=== PATIENT | female | born 1995 | race American Indian/Alaskan Native ===

== ENCOUNTER 2017-04-20 21:56 | Emergency (ER) | payer MEDICAID, OTHER ==
[2017-04-20 21:56] VITALS: BMI 28.3
[2017-04-20 22:09] VITALS: BP 101/65; PULSE 104; RESP 18; TEMP 97.9; O2SAT 100
[2017-04-20] MEDS ORDERED: Amoxicillin-Clav 875-125 mg Tab PO STA (22:34)
--- NOTE | 2017-04-20 22:35 | C.PDOC ---
History Of Present Illness The patient reports 1 week history of nasal congestion which is associated with head pressure. Patient reports that the pain is worsened with leaning forward. Patient has tried OTC sinus medicaitons without relief. Denies fever, nausea, vomiting, neck pain, trauma, travel. Time Seen by Provider: 04/20/17 22:14 Chief Complaint (Nursing): Cough, Cold, Congestion History Per: Patient History/Exam Limitations: no limitations Onset/Duration Of Symptoms: Days, Persistent Current Symptoms Are (Timing): Still Present Location Of Pain: Sinus/es Associated Symptoms: Sinus Drainage, Nasal Congestion. denies: Sore Throat Past Medical History Reviewed: Historical Data, Nursing Documentation, Vital Signs Vital Signs: Last Vital Signs Temp 97.9 F 04/20/17 22:06 Pulse 104 H 04/20/17 22:06 Resp 18 04/20/17 22:06 BP 101/65 04/20/17 22:06 Pulse Ox 100 04/20/17 22:40 - Medical History PMH: Asthma, Bronchitis Surgical History: No Surg Hx Family History: States: Other Other Family History: family history of asthma and allergies - Social History Hx Alcohol Use: No Hx Substance Use: No - Immunization History Hx Tetanus Toxoid Vaccination: Yes Hx Influenza Vaccination: Yes Hx Pneumococcal Vaccination: Yes Review Of Systems Except As Marked, All Systems Reviewed And Found Negative. Physical Exam - Physical Exam Appears: Well, No Acute Distress Skin: Normal Color, Warm, No Rash Head: Atraumatic, Normacephalic Eye(s): bilateral: Normal Inspection, PERRL, EOMI Ear(s): Bilateral: Normal Nose: Other ((+) nasal congestion and right sided frontal sinus tenderness) Oral Mucosa: Moist Tongue: Normal Appearing Lips: Normal Appearing Throat: No Erythema, No Exudate Neck: Normal ROM, Supple Chest: Symmetrical, No Tenderness Cardiovascular: Rhythm Regular, No Friction Rub, No Murmur Respiratory: Normal Breath Sounds, No Rales, No Rhonchi, No Wheezing Extremity: Normal ROM, No Swelling Neurological/Psych: Oriented x3, Normal Speech, Normal Cranial Nerves, Normal Motor Gait: Steady ED Course And Treatment O2 Sat by Pulse Oximetry: 100 (on RA) Pulse Ox Interpretation: Normal Disposition - Disposition Referrals: Madisyn Kendrick MD [Staff Provider] - Disposition: HOME/ ROUTINE Disposition Time: 22:36 Condition: GOOD Additional Instructions: Follow up with the medical doctor within 1-2 days, Return if worsened. Prescriptions: Amoxicillin/Clavulanate [Augmentin 875 MG-125 MG] 1 tab PO BID #14 tab Ibuprofen [Motrin] 600 mg PO TID #21 tab Loratadine/Pseudoephedrine [Claritin-D 24 Hour Tablet] 1 each PO DAILY #10 tab.er.24h predniSONE [Prednisone] 10 mg PO BID #10 tab Instructions: Sinusitis (ED) Forms: [employer] (Tajik) - Clinical Impression Clinical Impression: Sinusitis
[2017-04-20] MEDS ORDERED: Amoxicillin-Clav 875-125 mg Tab PO ONE (22:38)
== END 2017-04-20 22:45 | disposition home or self-care (01) ==
LOC: C.ER 21:56
DX: J32.9 Chronic sinusitis, unspecified (principal)

== ENCOUNTER 2017-09-30 16:22 | Emergency (ER) | payer OTHER ==
[2017-09-30 16:22] VITALS: BMI 28.3
[2017-09-30] MEDS ORDERED: Sodium Chloride 0.9% 1,000 ML IV ONE (16:53)
--- NOTE | 2017-09-30 16:59 | C.PDOC ---
History Of Present Illness Aquiles Bocanegra is a 22 year old female, whose past medical history includes asthma and P: 0 A: 2 , who presents to the emergency department complaining of abdominal discomfort described as cramping. Patient states she took a test at home and it was positive. She notes not being on control. Patient denies chest pain, shortness of breath, headache, fever, chills , cough, nausea, vomiting, diarrhea, changes in bowel habits, dysuria, hematuria , frequency, flank pain, or vaginal bleeding/discharge. Time Seen by Provider: 09/30/17 16:33 Chief Complaint (Nursing): Abdominal Pain History Per: Patient History/Exam Limitations: no limitations Onset/Duration Of Symptoms: Hrs Current Symptoms Are (Timing): Still Present Location Of Pain/Discomfort: Diffuse Radiation Of Pain To:: None Quality Of Discomfort: Cramping Associated Symptoms: denies: Fever, Vomiting, Diarrhea, Chest Pain Exacerbating Factors: None Alleviating Factors: None Recent travel outside of the [place]: No Abnormal Vaginal Bleeding: No : 3 Para: 0 Miscarriage: 2 Past Medical History Reviewed: Historical Data, Nursing Documentation, Vital Signs Vital Signs: Last Vital Signs Temp 98.0 F 09/30/17 20:45 Pulse 86 09/30/17 20:45 Resp 20 09/30/17 20:45 BP 126/78 09/30/17 20:45 Pulse Ox 97 09/30/17 20:45 - Medical History PMH: Asthma, Bronchitis Family History: States: No Known Family Hx - Social History Hx Alcohol Use: No Hx Substance Use: No - Immunization History Hx Tetanus Toxoid Vaccination: Yes Hx Influenza Vaccination: Yes Hx Pneumococcal Vaccination: Yes Review Of Systems Constitutional: Negative for: Fever, Chills Cardiovascular: Negative for: Chest Pain Respiratory: Negative for: Shortness of Breath Gastrointestinal: Positive for: Abdominal Pain (discomfort (cramping)). Negative for: Nausea, Vomiting Genitourinary: Negative for: Dysuria, Vaginal Discharge, Vaginal Bleeding Musculoskeletal: Negative for: Back Pain Skin: Negative for: Rash Neurological: Negative for: Headache Psych: Negative for: Anxiety Physical Exam - Physical Exam Appears: Well, Non-toxic, No Acute Distress Skin: Normal Color, Warm, Dry Head: Atraumatic, Normacephalic Eye(s): bilateral: Normal Inspection Cardiovascular: Rhythm Regular Respiratory: Normal Breath Sounds, No Rales, No Rhonchi, No Wheezing Gastrointestinal/Abdominal: Normal Exam, Bowel Sounds (Normal), Soft, No Tenderness, No Distention, No Guarding, No Rebound Neurological/Psych: Oriented x3, Normal Speech ED Course And Treatment - Laboratory Results Result Diagrams: 09/30/17 17:35 09/30/17 17:35 Lab Interpretation: Abnormal (QUant HCG 6767, A+) Urine POC: Positive Medical Decision Making Medical Decision Making: Impression: 22 y/o female with unremarkable physical exam c/o abdominal discomfort, who states being positive on test at home. Plan: -- Ultrasound -- Labs -- Urinalysis -- Sodium Chloride -- Reassess and disposition Progress Notes: Ultrasound: IMPRESSION: 1. Fluid collection within the uterus. Is not clearly visualized due to poor bladder filling. Results from a transvaginal ultrasound demonstrate the presence of yolk sac indicating that this represents an intrauterine . 2. Nonvisualization of the right ovary. early preg to missed AB US report given and plan for outpatient f/u. Disposition Doctor Will See Patient In The: Office Counseled Patient/Family Regarding: Studies Performed, Diagnosis - Disposition Referrals: [facility] [Outside] [facility] [Outside] Disposition: HOME/ ROUTINE Disposition Time: 20:38 Condition: GOOD Additional Instructions: Ultrasound with early IUP but ? viability QHCG 6767 H Blood: A+ Expect heavy menstrual bleeding: if so, no need for further follow-up If NO menstrual bleeding in about 2 weeks, outpatient follow-up in our [facility] to consider D&C Instructions: Miscarriage, Bleeding With (DC) Forms: [employer] (Spanish) - Clinical Impression Clinical Impression: Vaginal bleeding during - Scribe Statement The provider has reviewed the documentation as recorded by the Samibe Scribe Attestation: Ivette Vargasibe Attestation: All medical record entries made by the Scribe were at my direction and personally dictated by me. I have reviewed the chart and agree that the record accurately reflects my personal performance of the history, physical exam, medical decision making, and the department course for this patient. I have also personally directed, reviewed, and agree with the discharge instructions and disposition.
[2017-09-30] MEDS ORDERED: Sodium Chloride 0.9% 1,000 ML ONE (17:30)
[2017-09-30 17:43] LABS: BASO % 0.6 % (0.0-2.0); HEMOGLOBIN 9.5 g/dL (11.0-16.0); LYMPH # 0.6 K/uL (1.0-4.3); MEAN CORPUSCULAR HEMOGLOBIN 23.8 pg (27.0-31.0); MEAN CORPUSCULAR HGB CONC 32.5 g/dL (33.0-37.0); MONO # 0.4 K/uL (0.0-0.8); MONO % 9.7 % (0.0-10.0); NEUT % 73.7 % (50.0-75.0); RBC 3.99 Mil/uL (3.80-5.20); RED CELL DISTRIBUTION WIDTH 15.3 % (11.5-14.5); WHITE BLOOD COUNT 4.1 K/uL (4.8-10.8)
[2017-09-30 17:51] LABS: HCG,QUALITATIVE URINE POSITIVE (NEGATIVE); MEAN CELL VOLUME 73.3 fL (81.0-99.0)
[2017-09-30 17:53] LABS: ALBUMIN 4.1 g/dL (3.5-5.0); ALT/SGPT 17 U/L (9-52); AST/SGOT 20 U/L (14-36); BLOOD UREA NITROGEN 6 mg/dL (7-17); CALCIUM 8.6 mg/dl (8.6-10.4); GFR AFRICAN-AMERICAN > 60; GFR NON-AFRICAN AMERICAN > 60
[2017-09-30 17:56] LABS: SQUAMOUS EPITHIAL 8 /hpf (0-5); URINE BACTERIA RARE (<OCC); URINE BILIRUBIN NEGATIVE (NEGATIVE); URINE BLOOD NEGATIVE (NEGATIVE); URINE CLARITY Hazy (Clear); URINE COLOR Yellow (YELLOW); URINE GLUCOSE (UA) NORMAL (Normal); URINE LEUKOCYTE ESTERASE NEG Leu/uL (Negative); URINE NITRATE NEGATIVE (NEGATIVE); URINE PROTEIN NEGATIVE (NEGATIVE); URINE UROBILINOGEN NORMAL mg/dL (0.2-1.0)
[2017-09-30 17:57] LABS: BARBITURATES, UR NEGATIVE (NEGATIVE); BENZODIAZEPINES, UR NEGATIVE (NEGATIVE); OPIATES, UR NEGATIVE (NEGATIVE); PHENCYCLIDINE, UR NEGATIVE (NEGATIVE)
--- NOTE | 2017-09-30 20:27 | US ---
EXAM: US , Transvaginal CLINICAL HISTORY: 22 years old, female; Pain; complicated by abdominal or pelvic pain; Lower; First trimester; Gestational age or lmp: 08/15/17; ; Additional info: Early preg cramps TECHNIQUE: Real-time transvaginal obstetrical ultrasound of the maternal pelvis and a first trimester with image documentation. Transvaginal imaging was used for better evaluation of the fetus and adnexa. COMPARISON: No relevant prior studies available. FINDINGS: Gestation: There is an intrauterine gestational sac. The sac measures 1 x 0.6 x 1 cm. It's too small for dating. There is a yolk sac present. There is no pole. Placenta/amniotic fluid: Cannot be adequately evaluated due to the early gestational age. Uterus/cervix: The uterus measures 10 x 6.8 x 5.2 cm. No myometrial mass. The cervix is closed at the time of the study. Ovaries: The right ovary measures 3.8 x 2.2 x 3.3 cm. subcentimeter follicles are present. Blood flow is seen in the right ovary on color Doppler examination. A halo of vascularity surrounding a collapsed cyst suggest that this is a corpus luteum cyst. It measures 2 cm in greatest diameter. The left ovary measures 3.1 x 1.5 x 2.2 cm. Subcentimeter follicles are present. Blood flow is seen in the left ovary on color Doppler examination. No mass. Free fluid: A trace amount of free fluid is seen in the posterior cul-de-sac. IMPRESSION: Single intrauterine . The gestational sac is too small for dating. Followup might be considered to verify the presence of a live . EXAM: US Pelvis Complete, Transabdominal US Pelvis, Transvaginal US Duplex Arterial/Venous of the Pelvis, Complete EXAM DATE/TIME: Exam ordered 09/30/2017 4:53 PM CLINICAL HISTORY: 22 years old, female; Pain; complicated by abdominal or pelvic pain; Lower; First trimester; Gestational age or lmp: 08/15/17; ; Additional info: Early preg cramps TECHNIQUE: Real-time transabdominal and transvaginal pelvic ultrasound (complete) with image documentation. Transvaginal imaging was used for better evaluation of the endometrium and adnexa. Real-time duplex ultrasound scan of the arterial and venous flow of the pelvis with color Doppler flow and spectral waveform analysis. COMPARISON: No relevant prior studies available. FINDINGS: Uterus/cervix: The uterus measures 9.1 x 5 point to 8 x 6.1 cm. Normal endometrial stripe thickness. No myometrial mass. Right ovary: The right ovary is not seen separate structure. Left ovary: The left ovary measures 3.5 x 1.4 x 2.8 cm. Subcentimeter follicles are noted. Blood flow seen in the left ovary color Doppler examination. Free fluid: No free fluid. Bladder: Fluid is noted within the endometrial canal. Bladder is poorly distended. IMPRESSION: 1. Fluid collection within the uterus. Is not clearly visualized due to poor bladder filling. Results from a transvaginal ultrasound demonstrate the presence of yolk sac indicating that this represents an intrauterine . 2. Nonvisualization of the right ovary.
[2017-09-30 20:51] VITALS: BP 126/78; PULSE 86; RESP 20; TEMP 98; O2SAT 97
== END 2017-09-30 20:45 | disposition home or self-care (01) ==
LOC: C.ER 16:22
DX: O46.91 Antepartum hemorrhage, unspecified, first trimester (principal); Z3A.00 Weeks of gestation of pregnancy not specified
CPT/HCPCS: 76805; 76817; 80053; 80324; 80345; 80346; 80349; 80353; 80358; 80361; 81001; 83992; 84702; 84703; 85025; 86850; 86900; 96360; 99285; J7040